=== PATIENT | male | born 1995 | race Hispanic/Latino ===

== ENCOUNTER → 2017-09-20 08:52 | Outpatient (CLI) | payer OTHER, SELFPAY | PROVIDERS: PCP Family Medicine; Visit Provider Internal Medicine ==

== ENCOUNTER → 2017-09-22 08:25 | Outpatient (CLI) | payer OTHER, SELFPAY | PROVIDERS: PCP Family Medicine; Visit Provider Internal Medicine | DX: L92.8 Other granulomatous disorders of the skin and subcutaneous tissue (principal); S81.802A Unspecified open wound, left lower leg, initial encounter; T81.31XA Disruption of external operation (surgical) wound, not elsewhere classified, initial encounter | CPT/HCPCS: 11042; 99213 ==

== ENCOUNTER → 2017-09-29 13:36 | Outpatient (CLI) | payer OTHER, SELFPAY ==
--- NOTE | 2017-09-29 | OV.WND_ITS ---
Progress Note Details Patient Name: Max Solis Patient Number: [id number] PatientPatientDate: 09/29/2017 Clinician: Lashon Nova Physician / Equipment Worker: Ochoa Daily SUBJECTIVE Chief Complaint This information was obtained from the patient Compartment syndrome 08/04/17, LLE wound. Allergies NKDA HPI This information was obtained from the patient 09/29/17. Seen by Dr. Daily. The patient does not report increased pain or drainage associated with the left lower leg surgical wound since his last visit. 09/22/17. Seen by Dr. Daily. The patients new to our clinic and presents with a slowly healing, left lower leg surgical wound that started following a fasciotomy performed for compartment syndrome that subsequently become infected. He's been treated with Keflex but feels it did not start to improve until taking Bactrim. He also has had a STORMY wound vac placed but is not current receiving NPWT. He does not report pain at the site nor significant drainage. Past Medical History This information was obtained from the patient Patient has a medical history of: Depression Major Depressive Episode - 07/27/2017 (one event attempted suicide) Sleep Apnea Migraine Complaints and Symptoms This information was obtained from the patient Patient complains of: General Notes: I have reviewed and concur with the Review of Systems and Past Family Social History documents completed by the clinician, I have reviewed and concur with the Wound Assessment document completed by the clinician Integumentary (Hair/Skin/Nails): Open Sore Prior Wound History: Drainage, Erythema Patient denies complaints or symptoms related to: Cardiovascular (Central/Peripheral): Intermittent Claudication, Lower extremity (leg) resting pain, Lower extremity (leg) swelling Ear/Nose/Mouth/Throat: Hearing Loss / Aid Hematologic/Lymphatic: Bleeding / Clotting Disorders, Bleeding Tendency Neurological: Loss of Protective Sensation Psychiatric: Memory Loss Respiratory: Shortness of Breath OBJECTIVE Constitutional BP elevated; Afebrile; Alert and in no distress. Height/Length: 69 in (175.26 cm ), Weight: 200.1 lbs (90.95 kgs), BMI: 29.5, Pulse: 113 bpm, Respiratory Rate: 18 breaths/ min, Blood Pressure: 138/97 mmHg, Pulse Oximetry: 98 %. Ears, Nose, Mouth, and Throat: No clinically significant hearing loss on informal examination. Respiratory: No respiratory distress. Even respirations and without use of accessory muscles.. Integumentary (Hair, Skin) No periwound erythema, warmth, or significant drainage. No periwound rashes appreciated or noted otherwise.. Refer to appropriate clinician wound documentation for this visit; left lower leg wound extends to subcut with base covered with pink hypergranulation, remainder fibrin and slough. Wound #1 Left, Anterior Leg is an acute Full Thickness Surgical Wound and has received a status of Not Healed. Subsequent wound encounter measurements are 6cm length x 1cm width x 0.1cm depth, with an area of 6 sq cm and a volume of 0.6 cubic cm. No tunneling has been noted. No sinus tract has been noted. No undermining has been noted. There is a moderate amount of serous drainage noted which has no odor. The patient reports a wound pain of level 0/10. The wound margin is attached. Wound bed has No epithelialization, Yes eschar, Yes slough, Yes bright red, spongy granulation. The periwound skin texture is normal. The periwound skin moisture is normal. The periwound skin color is normal. The temperature of the periwound skin is WNL. Periwound skin does not exhibit signs or symptoms of infection. Local Pulse is Strong. Neurological: Cranial nerves grossly intact with symmetric function normal by informal observation.. ASSESSMENT Active Problems ICD-10 (Encounter Diagnosis) S81.802D - Unspecified open wound, left lower leg, subsequent encounter (Encounter Diagnosis) L92.8 - Other granulomatous disorders of the skin and subcutaneous tissue (Encounter Diagnosis) T81.31XD - Disruption of external operation (surgical) wound, not elsewhere classified, subsequent encounter PROCEDURES Wound #1 Wound #1 (Surgical Wound) is located on the left, anterior leg. A skin/ subcutaneous tissue level surgical debridement with a total area debrided of 6 sq cm was performed by Ochoa Daily MD. Subcutaneous was removed along with devitalized tissue: slough. The following instrument(s) were used: curette. Pain control was achieved using 4% Lido. A time out was conducted prior to the start of the procedure. A minimal amount of bleeding was controlled with silver nitrate. The procedure was tolerated well with a pain level of 0 throughout and a pain level of 0 following the procedure. Post Debridement Measurements: 6cm length x 1cm width x 0.2cm depth; with an area of 6 sq cm and a volume of 1.2 cubic cm; Wound #1 (Surgical Wound) is located on the left, anterior leg. A Chemical Cauterization procedure was performed by Ochoa Daily MD. General Notes: Hypergranulation treated with SIlver nitrate Additional Information Muscle fascia or bone removed and sent to pathology?: No PLAN Wound Orders: Wound #1 Left, Anterior Leg Cleanser Cleanse Wound: - Normal saline or distilled water. May Shower. - Keep dressing dry. You may use a shower boot. Dressings Primary dressing: - Tielle Plus Change Dressing: - Every other day. Follow-Up Appointments Return Appointment: - - One week Other information: If you develop fever, chills, increased pain, drainage, redness or swelling please call our office. If after hours, respond to the ER. Should you experience any significant changes in your wound(s) or have any questions regarding your home care instructions please contact the wound center @ [phone]. If after hours, contact your primary care physician or go to the hospital emergency room. Scribing Attestation I attest, as the nurse, that I scribed these orders for the physician. Laboratory: Culture Wound I've reviewed the clinician's documentation and agree with the evaluation and plan as written. In addition the patient's wound demonstrates evidence of non-viable devitalized tissue which will continue to benefit from sharp debridement to help promote granulation and expedite healing. Also, due to the persistent hypergranulation and what appears to excessive drainage I've cultured the wound today and will consider starting an antibiotic pending the results. Electronic Signature(s) Signed By: Date: Ochoa Daily MD 09/30/2017 07:19:13 Entered By: Ochoa Daily on 09/30/2017 06:54:17
== END ==
PROVIDERS: PCP Family Medicine; Visit Provider Internal Medicine
DX: S81.802A Unspecified open wound, left lower leg, initial encounter (principal); T81.31XA Disruption of external operation (surgical) wound, not elsewhere classified, initial encounter; L92.8 Other granulomatous disorders of the skin and subcutaneous tissue
CPT/HCPCS: 11042; 87070; 87075; 87077; 87147; 87186; 87205

== ENCOUNTER → 2017-10-12 10:32 | Outpatient (CLI) | payer OTHER, SELFPAY ==
--- NOTE | 2017-10-12 | OV.WND_ITS ---
Progress Note Details Patient Name: Max Solis Patient Number: [id number] PatientPatientDate: 10/12/2017 Clinician: Rhoda Stephen Clinician Cosigner: Heena Collins Physician / Laundry Tech: Ochoa Daily SUBJECTIVE Chief Complaint This information was obtained from the patient Compartment syndrome 08/04/17, LLE wound. Allergies NKDA HPI This information was obtained from the patient 10/12/17. Seen by Dr. Daily. The patient does not report increased pain or drainage associated with the left lower leg surgical wound since his last visit. 09/29/17. Seen by Dr. Daily. The patient does not report increased pain or drainage associated with the left lower leg surgical wound since his last visit. 09/22/17. Seen by Dr. Daily. The patients new to our clinic and presents with a slowly healing, left lower leg surgical wound that started following a fasciotomy performed for compartment syndrome that subsequently become infected. He's been treated with Keflex but feels it did not start to improve until taking Bactrim. He also has had a STORMY wound vac placed but is not current receiving NPWT. He does not report pain at the site nor significant drainage. Past Medical History This information was obtained from the patient Patient has a medical history of: Depression Major Depressive Episode - 07/27/2017 (one event attempted suicide) Sleep Apnea Migraine Complaints and Symptoms This information was obtained from the patient Patient complains of: General Notes: I have reviewed and concur with the Review of Systems and Past Family Social History documents completed by the clinician, I have reviewed and concur with the Wound Assessment document completed by the clinician Integumentary (Hair/Skin/Nails): Open Sore Prior Wound History: Drainage, Erythema Patient denies complaints or symptoms related to: Cardiovascular (Central/Peripheral): Intermittent Claudication, Lower extremity (leg) resting pain, Lower extremity (leg) swelling Ear/Nose/Mouth/Throat: Hearing Loss / Aid Hematologic/Lymphatic: Bleeding / Clotting Disorders, Bleeding Tendency Neurological: Loss of Protective Sensation Psychiatric: Memory Loss Respiratory: Shortness of Breath OBJECTIVE Constitutional Vital signs reviewed and noted. Well developed. Alert. Clean appearing.. Height/ Length: 69 in (175.26 cm), Weight: 200.1 lbs (90.95 kgs), BMI: 29.5, Temperature: 98.2 ?F ( 36.78 ?C), Pulse: 107 bpm, Respiratory Rate: 18 breaths/min, Blood Pressure: 132/82 mmHg, Pulse Oximetry: 99 %. Integumentary (Hair, Skin) No periwound erythema, warmth, or significant drainage. No periwound rashes appreciated or noted otherwise.. Refer to appropriate clinician wound documentation for this visit; left lower leg wound extends to subcut with base partially covered with red hypergranulation, remainder fibrin and slough. Wound #1 Left, Anterior Leg is an acute Full Thickness Surgical Wound and has received a status of Not Healed. Subsequent wound encounter measurements are 1.2cm length x 0.7cm width x 0.1cm depth, with an area of 0.84 sq cm and a volume of 0.084 cubic cm. No tunneling has been noted. No sinus tract has been noted. No undermining has been noted. There is a moderate amount of serous drainage noted which has no odor. The patient reports a wound pain of level 0/10. The wound margin is attached. Wound bed has Yes epithelialization, No eschar, No slough, Yes bright red, spongy granulation. The periwound skin texture is normal. The periwound skin moisture is normal. The periwound skin color is normal. The temperature of the periwound skin is WNL. Periwound skin does not exhibit signs or symptoms of infection. Local Pulse is Strong. ASSESSMENT Active Problems ICD-10 (Encounter Diagnosis) S81.802D - Unspecified open wound, left lower leg, subsequent encounter (Encounter Diagnosis) L92.8 - Other granulomatous disorders of the skin and subcutaneous tissue (Encounter Diagnosis) T81.31XD - Disruption of external operation (surgical) wound, not elsewhere classified, subsequent encounter PROCEDURES Wound #1 Wound #1 (Surgical Wound) is located on the left, anterior leg. A Chemical Cauterization procedure was performed by Ochoa Daily MD. General Notes: Hpergranulation treated with Silver Nitrate. PLAN Wound Orders: Wound #1 Left, Anterior Leg Cleanser Cleanse Wound: - Normal saline or distilled water. May Shower. - Keep dressing dry. You may use a shower boot. Dressings Primary dressing: - Boarder Foam. Change Dressing: - Every other day. Follow-Up Appointments Return Appointment: - - D/C from Wound. Call if you have any concerns Other information: If you develop fever, chills, increased pain, drainage, redness or swelling please call our office. If after hours, respond to the ER. Should you experience any significant changes in your wound(s) or have any questions regarding your home care instructions please contact the wound center @ [phone]. If after hours, contact your primary care physician or go to the hospital emergency room. Scribing Attestation I attest, as the nurse, that I scribed these orders for the physician. In addition the presence of hypergranulation tissue in the wound was not an expected finding and was cauterized with silver nitrate. The patient's dressing regimen will be modified appropriately to attempt to reduce the formation of further hypergranulation tissue. Electronic Signature(s) Signed By: Date: Ochoa Daily MD 10/13/2017 07:32:51 Entered By: Ochoa Daily on 10/13/2017 07:14:53
== END ==
PROVIDERS: PCP Family Medicine; Visit Provider Internal Medicine
DX: S81.802D Unspecified open wound, left lower leg, subsequent encounter (principal); T81.31XD Disruption of external operation (surgical) wound, not elsewhere classified, subsequent encounter; L92.8 Other granulomatous disorders of the skin and subcutaneous tissue
CPT/HCPCS: 17250